=== PATIENT | male | born 1995 ===

== ENCOUNTER 2016-05-26 21:45 | Emergency (ER) | payer MEDICAID, OTHER ==
[2016-05-26 21:50] VITALS: BMI 26.3
[2016-05-26] MEDS ORDERED: Sodium Chloride 0.9% 1,000 ML IV STA (22:10)
--- NOTE | 2016-05-26 22:15 | ED PDOC ---
Arrival/HPI - General Chief Complaint: Fever Time Seen by Provider: 05/26/16 22:07 Historian: Patient - History of Present Illness Narrative History of Present Illness (Text): 05/26/16 22:12 This 21 yo male without significant medical history, presents to this ED c/o fever, myalgias, and cough x 4 days. Patient denies sob, cp, abdominal pain, urinary symptoms, rash, sick contact, or recent travel. Patient has been tolerating PO fluids, and drinks. Denies diarrhea, n/v, or ZHU. Time/Duration: Other (4 days) Quality: Aching Context: Home Past Medical History - Provider Review Nursing Documentation Reviewed: Yes - Infectious Disease Hx of Infectious Diseases: None - Psychiatric Hx Substance Use: No - Anesthesia Hx Anesthesia: No Family/Social History - Physician Review Nursing Documentation Reviewed: Yes Family/Social History: No Known Family HX Smoking Status: Never Smoked Hx Alcohol Use: Yes Frequency of alcohol use: Socially Hx Substance Use: No Allergies/Home Meds Allergies/Adverse Reactions: Allergies No Known Allergies Allergy (Verified 09/11/15 14:54) Review of Systems - Review of Systems Constitutional: Fevers. absent: Fatigue, Weight Change, Night Sweats Eyes: Normal. absent: Vision Changes, Photophobia, Eye Pain ENT: Normal. absent: Sore Throat, Rhinorrhea Respiratory: Cough. absent: SOB, Sputum, Wheezing Cardiovascular: Normal. absent: Chest Pain, Palpitations Gastrointestinal: Normal. absent: Abdominal Pain, Constipation, Diarrhea, Nausea, Vomiting Genitourinary Male: Normal. absent: Dysuria, Frequency, Hematuria Musculoskeletal: Myalgias Skin: Normal. absent: Rash Neurological: Normal. absent: Headache, Dizziness, Focal Weakness, Gait Changes , Speech Changes, Facial Droop Endocrine: Normal Hemo/Lymphatic: Normal Psychiatric: Normal Physical Exam Vital Signs Temp Pulse Resp BP Pulse Ox 05/26/16 23:02 99.3 F 112 H 16 140/61 97 05/26/16 21:54 103 F H 141 H 18 140/88 99 Temperature: Febrile Blood Pressure: Normal Pulse: Tachycardic Respiratory Rate: Normal Appearance: Positive for: Well-Appearing, Non-Toxic, Comfortable Pain Distress: None Mental Status: Positive for: Alert and Oriented X 3 - Systems Exam Head: Present: Atraumatic, Normocephalic Pupils: Present: PERRL Extroacular Muscles: Present: EOMI Conjunctiva: Present: Normal Mouth: Present: Moist Mucous Membranes Pharnyx: Present: Normal. No: ERYTHEMA, EXUDATE, TONSILS ENLARGED Nose (External): Present: Atraumatic Nose (Internal): Present: Normal Inspection Neck: Present: Normal Range of Motion, Trachea Midline. No: Meningeal Signs, MIDLINE TENDERNESS, Paraspinal Tenderness, Lymphadenopathy Respiratory/Chest: Present: Clear to Auscultation, Good Air Exchange. No: Respiratory Distress, Accessory Muscle Use, Wheezes, Decreased Breath Sounds, Rales, Retracting, Rhonchi, Tachypneic, Tender to Palpation Cardiovascular: Present: Regular Rate and Rhythm, Normal S1, S2. No: Murmurs Abdomen: Present: Normal Bowel Sounds. No: Tenderness, Distention, Peritoneal Signs Back: Present: Normal Inspection. No: CVA Tenderness Upper Extremity: Present: Normal Inspection, Normal ROM, NORMAL PULSES, Neurovascularly Intact, Capillary Refill < 2s. No: Cyanosis, Edema Lower Extremity: Present: Normal Inspection, NORMAL PULSES, Normal ROM, Neurovascularly Intact, Capillary Refill < 2 s. No: Edema, CALF TENDERNESS, Rosie's Sign, Temperature Abnormalties Neurological: Present: GCS=15, CN II-XII Intact, Speech Normal, Motor Func Grossly Intact, Normal Sensory Function, Normal Cerebellar Funct, Gait Normal, Memory Normal Skin: Present: Warm, Dry, Normal Color. No: Rashes Psychiatric: Present: Alert, Oriented x 3, Normal Insight, Normal Concentration Medical Decision Making ED Course and Treatment: 05/27/16 00:42 Re-evaluation. Patient feels better. Discussed results and plan with patient who expresses understanding. All questions answered and there is agreement with the plan to discharge home with instructions. Patient stable for discharge. Return if symptoms persist or worsen. Patient is requesting ABX prescription. Re-evaluation Time: 00:42 Reassessment Condition: Re-examined, Improved - Lab Interpretations Lab Results: Lab Results 05/26/16 22:20: Influenza Typ A,B (EIA) Negative for flu a/b - RAD Interpretation Narrative RAD Interpretations (Text): 05/27/16 00:42 CXR: NAD Radiology Orders: 05/26/16 22:12 CHEST TWO VIEWS (PA/LAT) [RAD] Stat - Medication Orders Current Medication Orders: Sodium Chloride (Sodium Chloride 0.9%) 1,000 mls @ 999 mls/hr IV .Q1H1M STA Stop: 05/27/16 01:07 Last Admin: 05/27/16 00:19 Dose: 999 MLS/HR eMAR Start Stop Document 05/27/16 00:19 EKEOO (Rec: 05/27/16 00:19 [place] [id number]- ATTEND) Intravenous Solution Start Date 05/27/16 Start Time 00:19 Discontinued Medications Acetaminophen (Tylenol 325mg Tab) 975 mg PO STAT STA Stop: 05/26/16 22:11 Last Admin: 05/26/16 22:26 Dose: 975 MG MAR Pain/Vitals Document 05/26/16 22:26 EKEOO (Rec: 05/26/16 22:[id number]- ATTEND) Pain Reassessment Is This A Pain ReAssessment? No Sleep Is patient sleeping during reassessment? No Presence of Pain Presence of Pain Yes Azithromycin (Zithromax) 500 mg PO STAT STA PRN Reason: Protocol Stop: 05/27/16 00:08 Last Admin: 05/27/16 00:19 Dose: 500 MG Sodium Chloride (Sodium Chloride 0.9%) 1,000 mls @ 999 mls/hr IV .Q1H1M STA Stop: 05/26/16 23:10 Last Admin: 05/26/16 22:25 Dose: 999 MLS/HR eMAR Start Stop Document 05/26/16 22:25 EKEOO (Rec: 05/26/16 22:26 [place] [id number]- ATTEND) Intravenous Solution Start Date 05/26/16 Start Time 22:26 Ketorolac Tromethamine (Toradol) 15 mg IVP STAT STA Stop: 05/26/16 22:11 Last Admin: 05/26/16 22:26 Dose: 15 MG IVP Administration Document 05/26/16 22:26 EKEOO (Rec: 05/26/16 22:26 [place] [id number]- ATTEND) Charges for Administration # of IVP Administrations 1 Disposition/Present on Arrival - Present on Arrival Any Indicators Present on Arrival: No History of DVT/PE: No History of Uncontrolled Diabetes: No Urinary Catheter: No History of Decub. Ulcer: No History Surgical Site Infection Following: None - Disposition Have Diagnosis and Disposition been Completed?: Yes Diagnosis: Viral syndrome Disposition: HOME/ ROUTINE Disposition Time: 00:44 Patient Plan: Discharge Patient Problems: Current Active Problems Problem Status Diagnosed Viral syndrome Acute Condition: GOOD Discharge Instructions (ExitCare): Viral Syndrome (ED) Additional Instructions: Call private doctor for follow up visit in 2-3 days. Take medication as instructed with food. Drink enough fluids and rest. Return to emergency if symptoms worsen. Prescriptions: Acetaminophen 650 mg PO Q4H PRN #30 capsule PRN Reason: Fever >100.4 F Ibuprofen [Motrin Tab] 600 mg PO Q6H PRN #30 tab PRN Reason: Fever >100.4 F Azithromycin [Z-Robby] 250 mg PO DAILY #4 tab Referrals: [facility] [Outside] - Follow up with primary Forms: WORK NOTE
[2016-05-26 23:03] VITALS: RESP 16
[2016-05-27] MEDS ORDERED: Sodium Chloride 0.9% 1,000 ML IV STA (00:07)
[2016-05-27 00:46] VITALS: O2SAT 98
[2016-05-27 01:22] VITALS: BP 130/61; PULSE 98; TEMP 98.3
--- NOTE | 2016-05-27 09:25 | RAD ---
HISTORY: Cough COMPARISON: No prior. TECHNIQUE: Chest PA and lateral FINDINGS: LUNGS: The lungs are well inflated and clear. No active pulmonary disease. PLEURA: No significant pleural effusion identified. No pneumothorax apparent. CARDIOVASCULAR: Normal. OSSEOUS STRUCTURES: No significant abnormalities. VISUALIZED UPPER ABDOMEN: Normal. OTHER FINDINGS: None. IMPRESSION: No active pulmonary disease.
== END 2016-05-27 01:21 | disposition home or self-care (01) ==
LOC: ED 21:45
DX: B34.9 Viral infection, unspecified (principal)
CPT/HCPCS: 71020; 87804; 96374; 99284; J1885; J7040

== ENCOUNTER 2018-04-09 20:53 | Emergency (ER) | payer MEDICAID, OTHER ==
[2018-04-09 20:56] VITALS: BMI 26.3
[2018-04-09 22:09] VITALS: RESP 16; TEMP 98.6
[2018-04-09] MEDS ORDERED: Sodium Chloride 0.9% 1,000 ML IV STA (22:31)
[2018-04-09 22:58] LABS: BASO # 0.03 K/mm3 (0.0-2.0); BASO % 0.3 % (0.0-3.0); EOS # 0.2 (0.0-0.7); EOS % 1.6 % (1.5-5.0); HEMOGLOBIN 14.4 g/dL (14.0-18.0); LYMPH # 1.7 (1.2-3.4); LYMPH % 15.6 % (22.0-35.0); MEAN CELL VOLUME 91.6 fl (80.0-105.0); MEAN CORPUSCULAR HEMOGLOBIN 31.9 pg (25.0-35.0); MEAN CORPUSCULAR HGB CONC 34.9 g/dl (31.0-37.0); MEAN PLATELET VOLUME 9.9 fl (7.0-11.0); MONO # 0.8 (0.1-0.6); MONO % 7.5 % (1.0-6.0); RBC 4.51 10^6/uL (3.5-6.1); RED CELL DISTRIBUTION WIDTH 12.6 % (11.5-14.5); WHITE BLOOD COUNT 10.8 10^3/uL (4.5-11.0)
[2018-04-09 23:06] LABS: ALB/GLOB RATIO 1.5 (1.1-1.8); ALBUMIN 4.3 g/dL (3.0-4.8); ALT/SGPT 26 U/L (7-56); AST/SGOT 40 U/L (17-59); BLOOD UREA NITROGEN 17 mg/dL (7-21); CALCIUM 9.5 mg/dL (8.4-10.5); GFR NON-AFRICAN AMERICAN > 60; LIPASE 32 U/L (23-300)
[2018-04-10] MEDS ORDERED: Iohexol 350 MG/100 ML VIAL ONE (00:29)
--- NOTE | 2018-04-10 00:30 | ED PDOC ---
Arrival/HPI - General Historian: Patient - History of Present Illness Narrative History of Present Illness (Text): 04/10/18 00:26 22-year-old otherwise healthy male presents today with intermittent worsening abdominal pain over the past few days. Patient states he's been having some mid and upper abdominal pain that has been intermittent for the past week but over the past few days the pain has become severe. Patient states the pain is intermittent and comes and goes every 15-20 minutes. Patient denies chest pain or shortness of breath. Denies fevers or chills. He denies urinary symptoms. He is complaining of nausea without vomiting. No dizziness or weakness. Patient denies recent NSAID use. Patient denies diarrhea or constipation. No medications have been taken at home. No other complaints <Ya Wolfe - Last Filed: 04/10/18 02:22> <Shaheen Pemberton - Last Filed: 04/10/18 04:15> - General Chief Complaint: Abdominal Pain Time Seen by Provider: 04/09/18 21:08 Past Medical History - Provider Review Nursing Documentation Reviewed: Yes - Travel History Have you recently traveled outside [place] w/in the past 3 mons?: No - Infectious Disease Hx of Infectious Diseases: None - Tetanus Immunization Tetanus Immunization: Unknown - Psychiatric Hx Substance Use: No - Anesthesia Hx Anesthesia: No <Ya Wolfe - Last Filed: 04/10/18 02:22> Family/Social History - Physician Review Nursing Documentation Reviewed: Yes Family/Social History: Unknown Family HX Smoking Status: Never Smoked Hx Alcohol Use: Yes Frequency of alcohol use: Socially Hx Substance Use: No <Ya Wolfe - Last Filed: 04/10/18 02:22> Allergies/Home Meds <Ya Wolfe - Last Filed: 04/10/18 02:22> <Shaheen Pemberton - Last Filed: 04/10/18 04:15> Allergies/Adverse Reactions: Allergies No Known Allergies Allergy (Verified 09/11/15 14:54) Review of Systems - Review of Systems Constitutional: absent: Fatigue, Fevers Respiratory: absent: SOB, Cough Cardiovascular: absent: Chest Pain, Palpitations Gastrointestinal: Abdominal Pain, Nausea. absent: Constipation, Diarrhea, Vomiting Genitourinary Male: absent: Dysuria, Frequency, Hematuria Musculoskeletal: absent: Arthralgias, Back Pain, Neck Pain Skin: absent: Rash, Pruritis Neurological: absent: Headache, Dizziness Psychiatric: absent: Anxiety, Depression <Ya Wolfe - Last Filed: 04/10/18 02:22> Physical Exam Vital Signs Reviewed: Yes Vital Signs Temp Pulse Resp BP Pulse Ox 04/09/18 22:06 98.6 F 95 H 16 151/83 H 97 Temperature: Afebrile Blood Pressure: Hypertensive Pulse: Regular Respiratory Rate: Normal Appearance: Positive for: Well-Appearing, Non-Toxic, Comfortable Pain Distress: None Mental Status: Positive for: Alert and Oriented X 3 - Systems Exam Head: Present: Atraumatic Mouth: Present: Moist Mucous Membranes Neck: Present: Normal Range of Motion Respiratory/Chest: Present: Clear to Auscultation, Good Air Exchange. No: Respiratory Distress, Accessory Muscle Use Cardiovascular: Present: Regular Rate and Rhythm, Normal S1, S2. No: Murmurs Abdomen: Present: Tenderness (minimal epigastic and periumbilical tenderness), Normal Bowel Sounds. No: Distention, Peritoneal Signs, Rebound, Guarding Back: Present: Normal Inspection. No: CVA Tenderness, Midline Tenderness, Paraspinal Tenderness Upper Extremity: Present: Normal ROM Lower Extremity: Present: Normal ROM Neurological: Present: GCS=15, Speech Normal Skin: Present: Warm, Dry, Normal Color. No: Rashes Psychiatric: Present: Alert, Oriented x 3 <Ya Wolfe - Last Filed: 04/10/18 02:22> Vital Signs Temp Pulse Resp BP Pulse Ox 04/09/18 22:06 98.6 F 95 H 16 151/83 H 97 <Shaheen Pemberton - Last Filed: 04/10/18 04:15> Medical Decision Making ED Course and Treatment: 04/10/18 00:28 Patient is nontoxic well appearing with stable vital signs presenting with intermittent abdominal pain CBC wnl CMP wnl Lipase wnl Urinalysis wnl CAT scan pending Patient reassessment: pt is non toxic well appearing; no distress. Discussed all results with patient in depth. advised f/u with Gi specialist. advised immediate return if symptoms worsen,persist or if new symptoms develop. advised f/u with PMD. Impression: Abdominal pain Motrin every 6 hours as needed for pain Pepcid one tablet daily Follow up with primary care physician within the next 2 days Follow up with the GI specialist within the next 2 days. Return immediately if symptoms worsen persist or if new symptoms develop: High fevers, increasing pain, vomiting, diarrhea or any other concerning symptoms develop 04/10/18 02:22 case signed out to Dr. Pemberton pending CAT scan result reevaluation and disposition - Lab Interpretations Lab Results: Total Bilirubin 0.6 mg/dL (0.2-1.3) 04/09/18 22:16 AST 40 U/L (17-59) 04/09/18 22:16 ALT 26 U/L (7-56) 04/09/18 22:16 Alkaline Phosphatase 70 U/L (38-126) 04/09/18 22:16 Total Protein 7.3 g/dL (5.8-8.3) 04/09/18 22:16 Albumin 4.3 g/dL (3.0-4.8) 04/09/18 22:16 Globulin 3.0 gm/dL 04/09/18 22:16 Albumin/Globulin Ratio 1.5 (1.1-1.8) 04/09/18 22:16 Lipase 32 U/L (23-300) 04/09/18 22:16 - RAD Interpretation Radiology Orders: 04/09/18 23:48 ABD & PELVIS IV CONTRAST ONLY [CT] Stat - Medication Orders Current Medication Orders: Discontinued Medications Sodium Chloride (Sodium Chloride 0.9%) 1,000 mls @ 999 mls/hr IV .Q1H1M STA Stop: 04/09/18 23:31 Last Admin: 04/09/18 22:54 Dose: 999 mls/hr eMAR Start Stop Document 04/09/18 22:54 SS (Rec: 04/09/18 22:54 SS [id number]) Intravenous Solution Start Date 04/09/18 Start Time 22:54 End Date 04/09/18 End time 23:55 Total Infusion Time 61 Pantoprazole Sodium (Protonix Inj) 40 mg IVP STAT STA Stop: 04/09/18 22:32 Last Admin: 04/09/18 22:54 Dose: 40 mg IVP Administration Document 04/09/18 22:54 SS (Rec: 04/09/18 22:54 SS [id number]) Charges for Administration # of IVP Administrations 1 <Ya Wolfe T - Last Filed: 04/10/18 02:22> ED Course and Treatment: 04/10/18 03:54 CT SCAN OF THE ABDOMEN AND PELVIS WITH CONTRAST. CLINICAL HISTORY: Abdominal pain. TECHNIQUE: Multiple axial and coronal CT images were obtained through the abdomen and pelvis after administration of intravenous contrast material. COMMENTS: Diffuse thickening of the stomach. The liver is of uniform attenuation without mass or defect. There is no intra or extrahepatic biliary ductal dilatation. The spleen is normal. The gallbladder is within normal limits. The pancreas is of normal contour and attenuation characteristics. There is no evidence of adrenal mass. Both kidneys demonstrate prompt and equal nephrograms. The kidneys are normal in size, shape and configuration. There is no evidence of renal or ureteral mass. No renal or ureteral calculi are identified. There is no hydroureter or hydronephrosis. No evidence for appendicitis. There is no bowel wall thickening. No evidence for small or large bowel obstruction. There is no evidence of abdominal ascites or lymphadenopathy. There is no evidence of intrinsic or extrinsic bladder mass. There is no pelvic ascites or lymphadenopathy. Images of the lung bases show no evidence of pleural or parenchymal mass. There are no pleural effusions. The bony structures are free of lytic or blastic lesions. IMPRESSION: Thickening of the stomach. Underdistention versus gastritis - Lab Interpretations Lab Results: Total Bilirubin 0.6 mg/dL (0.2-1.3) 04/09/18 22:16 AST 40 U/L (17-59) 04/09/18 22:16 ALT 26 U/L (7-56) 04/09/18 22:16 Alkaline Phosphatase 70 U/L (38-126) 04/09/18 22:16 Total Protein 7.3 g/dL (5.8-8.3) 04/09/18 22:16 Albumin 4.3 g/dL (3.0-4.8) 04/09/18 22:16 Globulin 3.0 gm/dL 04/09/18 22:16 Albumin/Globulin Ratio 1.5 (1.1-1.8) 04/09/18 22:16 Lipase 32 U/L (23-300) 04/09/18 22:16 Urine Color Yellow (YELLOW) 04/09/18 23:53 Urine Appearance Clear (CLEAR) 04/09/18 23:53 Urine pH 6.5 (4.7-8.0) 04/09/18 23:53 Ur Specific [place] 1.025 (1.005-1.035) 04/09/18 23:53 Urine Protein Negative mg/dL (<30 mg/dL) 04/09/18 23:53 Urine Glucose (UA) Negative mg/dL (NEGATIVE) 04/09/18 23:53 Urine Ketones Trace mg/dL (NEGATIVE) H 04/09/18 23:53 Urine Blood Negative (NEGATIVE) 04/09/18 23:53 Urine Nitrate Negative (NEGATIVE) 04/09/18 23:53 Urine Bilirubin Negative (NEGATIVE) 04/09/18 23:53 Urine Urobilinogen 0.2 E.U./dL (<1 E.U./dL) 04/09/18 23:53 Ur Leukocyte Esterase Negative Ericka/uL (NEGATIVE) 04/09/18 23:53 - RAD Interpretation Narrative RAD Interpretations (Text): 04/10/18 03:01 CT Abd/Pelvis- LINICAL HISTORY: Abdominal pain. TECHNIQUE: Multiple axial and coronal CT images were obtained through the abdomen and pelvis after administration of intravenous contrast material. COMMENTS: Diffuse thickening of the stomach. The liver is of uniform attenuation without mass or defect. There is no intra or extrahepatic biliary ductal dilatation. The spleen is normal. The gallbladder is within normal limits. The pancreas is of normal contour and attenuation characteristics. There is no evidence of adrenal mass. Both kidneys demonstrate prompt and equal nephrograms. The kidneys are normal in size, shape and configuration. There is no evidence of renal or ureteral mass. No renal or ureteral calculi are identified. There is no hydroureter or hy dronephrosis. No evidence for appendicitis. There is no bowel wall thickening. No evidence for small or large bowel obstruction. There is no evidence of abdominal ascites or lymphadenopathy. There is no evidence of intrinsic or extrinsic bladder mass. There is no pelvic ascites or lymphadenopathy. Images of the lung bases show no evidence of pleural or parenchymal mass. There are no pleural effusions. The bony structures are free of lytic or blastic lesions. IMPRESSION: Thickening of the stomach. Underdistention versus gastriti Radiology Orders: 04/09/18 23:48 ABD & PELVIS IV CONTRAST ONLY [CT] Stat Steel Sampler: Radiologist - Medication Orders Current Medication Orders: Discontinued Medications Sodium Chloride (Sodium Chloride 0.9%) 1,000 mls @ 999 mls/hr IV .Q1H1M STA Stop: 04/09/18 23:31 Last Admin: 04/09/18 22:54 Dose: 999 mls/hr eMAR Start Stop Document 04/09/18 22:54 SS (Rec: 04/09/18 22:54 SS [id number]) Intravenous Solution Start Date 04/09/18 Start Time 22:54 End Date 04/09/18 End time 23:55 Total Infusion Time 61 Pantoprazole Sodium (Protonix Inj) 40 mg IVP STAT STA Stop: 04/09/18 22:32 Last Admin: 04/09/18 22:54 Dose: 40 mg IVP Administration Document 04/09/18 22:54 SS (Rec: 04/09/18 22:54 SS [id number]) Charges for Administration # of IVP Administrations 1 <Shaheen Pemberton - Last Filed: 04/10/18 04:15> - PA / FITNESS CENTRE MANAGER / Resident Statement KALIE has reviewed & agrees with the documentation as recorded. KALIE has examined the patient and agrees with the treatment plan. <Shaheen Pemberton - Last Filed: 04/10/18 04:15> Disposition/Present on Arrival - Present on Arrival History of DVT/PE: No History of Uncontrolled Diabetes: No Urinary Catheter: No History of Decub. Ulcer: No History Surgical Site Infection Following: None <Ya Wolfe - Last Filed: 04/10/18 02:22> - Present on Arrival Any Indicators Present on Arrival: No - Disposition Have Diagnosis and Disposition been Completed?: Yes Disposition Time: 04:12 Patient Plan: Discharge <Shaheen Pemberton - Last Filed: 04/10/18 04:15> - Disposition Diagnosis: Gastritis Disposition: HOME/ ROUTINE Condition: STABLE Discharge Instructions (ExitCare): Gastritis (DC) Additional Instructions: Avoid alcohol/coffee(caffeinated),spicy foods/take meds as prescribed/follow up with your doctor Prescriptions: Pantoprazole Sodium [Protonix] 40 mg PO DAILY #21 ect Forms: [employer] ([place])
[2018-04-10 00:32] LABS: PH,URINE 6.5 (4.7-8.0); URINE BILIRUBIN NEGATIVE (NEGATIVE); URINE BLOOD NEGATIVE (NEGATIVE); URINE GLUCOSE (UA) NEGATIVE (NEGATIVE); URINE LEUKOCYTE ESTERASE NEGATIVE Leu/uL (NEGATIVE); URINE PROTEIN NEGATIVE mg/dL (<30 mg/dL); URINE UROBILINOGEN 0.2 E.U./dL (<1 E.U./dL)
[2018-04-10 00:37] LABS: URINE APPEARANCE CLEAR (CLEAR); URINE COLOR YELLOW (YELLOW)
[2018-04-10 04:30] VITALS: BP 106/57; PULSE 60; O2SAT 96
--- NOTE | 2018-04-10 11:11 | CT ---
Date of service: 04/10/2018 PROCEDURE: CT Abdomen and Pelvis with contrast HISTORY: abd pain COMPARISON: None. TECHNIQUE: Contrast dose: 100 cc of Omni 350 Radiation dose: Total exam DLP = 402.29 mGy-cm. This CT exam was performed using one or more of the following dose reduction techniques: Automated exposure control, adjustment of the mA and/or kV according to patient size, and/or use of iterative reconstruction technique. FINDINGS: LOWER THORAX: Unremarkable. LIVER: Unremarkable. No gross lesion or ductal dilatation. GALLBLADDER AND BILE DUCTS: Unremarkable. PANCREAS: Unremarkable. No gross lesion or ductal dilatation. SPLEEN: Unremarkable. ADRENALS: Unremarkable. No mass. KIDNEYS AND URETERS: Unremarkable. No hydronephrosis. No solid mass. VASCULATURE: Unremarkable. No aortic aneurysm. No aortic atherosclerotic calcification or mural plaque present. BOWEL: There is severe mural thickening and edema in the wall of the stomach. The finding is most consistent with severe gastritis. APPENDIX: Normal appendix. PERITONEUM: Unremarkable. No free fluid. No free air. LYMPH NODES: Unremarkable. No enlarged lymph nodes. BLADDER: Unremarkable. REPRODUCTIVE: Unremarkable. BONES: No acute fracture. OTHER FINDINGS: The report concurs with the preliminary [facility] report IMPRESSION: There is severe mural thickening and edema in the wall of the stomach. The finding is most consistent with severe gastritis.
== END 2018-04-10 04:29 | disposition home or self-care (01) ==
LOC: ED 20:53
DX: K29.70 Gastritis, unspecified, without bleeding (principal)
CPT/HCPCS: 74177; 80053; 81003; 83690; 85025; 96361; 96374; 96375; 99283; C9113; J1885; J7030; Q9967